=== PATIENT | male | born 1980 | race Caucasian/White ===

== ENCOUNTER 2016-05-08 08:38 | Emergency (ER) | payer OTHER ==
[~2016-05-08] VITALS: Ht 177.8 cm; Wt 109.0 kg
[2016-05-08 08:42] VITALS: BP 135/87; PULSE 61; RESP 18; O2SAT 97
--- NOTE | 2016-05-08 08:51 | ED.REPORT ---
HPI-Extremity Problem Lower Date of Service May 08, 2016 ED Provider: Dr. Ines Cross Patient is a 36-year-old male with a hx of HTN who reports to the ED with right lower extremity swelling and tenderness. Patient works at [employer] and his ski boot rubs on his right leg in the same place where his symptoms are occurring. Patient is not currently on any medication for HTN. Patient denies SOB, chest pain, nausea, Nursing Notes Stated Complaint: IRREGULAR HEART BEAT Chief Complaint: Extremity Trauma Nursing Notes Reviewed: Yes Allergies: Coded Allergies: No Known Allergies (Unverified , 05/08/16) Scheduled Sulfamethoxazole/Trimeth 800-160 mg (Bactrim DS) 1 Each Tablet 1 TABLET PO BID General Time Seen by MD: 08:51 Chief Complaint Leg injury right (right calf swelling and tenderness) Hx Obtained From: Patient Onset Occurred: 1 day ago Symptom Duration: Since onset Location: : Leg right Severity: Current: Mild Similar Sx Previous: No Past Medical History Past Medical History not currently on any medication for HTN Reports: Hypertension Past Surgical History denies Smoking History Unknown if Ever Smoker Ambulatory Status Independent Review of Systems Musculoskeletal: Reports: Extremity swelling (right calf erythema and tenderness) Skin: Reports Swelling (right calf) Complete sys rev & neg: except as marked. Respiratory: Denies: Shortness of breath Cardiovascular: Denies: Chest pain Physical Exam Initial Vital Signs Vital Signs (First) Date Time Temp Pulse Resp B/P Pulse Ox O2 Delivery O2 Flow Rate FiO2 05/08/16 08:42 36.6 61 18 135/87 97 Initial VS: Reviewed General/Constitutional: Well-developed, Well-nourished Head / Eyes: Atraumatic, Normocephalic, PERRL ENT: Mucous membranes moist, Conjunctiva normal, No scleral icterus Neck: Supple, Non-tender, Full range of motion Respiratory: Breath sounds normal, Clear to auscultation, No respiratory distress Cardiovascular: Regular rate & rhythm, Heart sounds normal, Intact distal pulses Abdomen / GI: Soft, Non-tender, No guarding, No rebound, No distention Neurologic: Alert, Oriented, Nonfocal Psychiatric: Mood/affect normal, Behavior normal, Normal thought content Right Leg / Calf: Positive: Swelling present... (Moderate) band of errythema and tenderness around right calf Right Ankle: Positive: Swelling present... (Mild) Interpretation & Diagnostics Lab Results Interpretation Result Diagram: 05/08/16 0905 05/08/16 0905 Test 05/08/16 09:05 White Blood Count 11.2th/mm3 (3.8-10.1) Red Blood Count 4.74mil/mm3 (4.40-5.80) Hemoglobin 13.6g/dL (13.8-17.2) Hematocrit 40.2% (41.0-50.0) Mean Corpuscular Volume 84.8fL (81-100) Mean Corpuscular Hemoglobin 28.7pg (27.0-35.0) Mean Corpuscular Hemoglobin Concent 33.8% (32.0-37.0) Red Cell Distribution Width 13.8% (12.3-15.4) Platelet Count 249bil/L (150-400) Neutrophils (%) (Auto) 74.7% (40-74) Lymphocytes (%) (Auto) 13.4% (14-46) Monocytes (%) (Auto) 11.1% (4-12) Eosinophils (%) (Auto) 0.2% (0-5) Basophils (%) (Auto) 0.4% (0-3) Sodium Level 138mEq/L (134-144) Potassium Level 4.1mEq/L (3.5-5.2) Chloride Level 103mEq/L (97-108) Carbon Dioxide Level 21mmol/L (18-29) Blood Urea Nitrogen 12mg/dL (6-20) Creatinine 0.83mg/dL (0.76-1.27) Estimat Glomerular Filtration Rate 110mL/min (>59) Glucose Level 104mg/dL (60-99) Calcium Level 9.0mg/dL (8.5-10.1) Total Bilirubin 0.9mg/dL (0.0-1.2) Aspartate Amino Transf (AST/SGOT) 16U/L (0-50) Alanine Aminotransferase (ALT/SGPT) 16U/L (0-44) Alkaline Phosphatase 63U/L (25-150) Total Protein 7.2g/dL (6.4-8.4) Albumin 4.2g/dL (3.4-5.0) Hold Shelton Top Tube Received (Received) ECG Interpretation Time: 09:45 Interpreted by: ED physician Normal ECG Interpretation: Normal sinus rhythm (86 with PVC's) Re-Eval/Medical Decision Counseled Regarding: Diagnosis, Lab results, Need for follow-up, When/why to return to ED Discharge & Departure Impression: Primary Impression: Cellulitis of right lower extremity Ruled Out: DVT (deep venous thrombosis) Disposition: Home Discharge Condition All VS Reviewed: Yes Condition: Stable Additional Instructions: see discharge notes for meds and d/c details Septra DS BID for 10 days Scribe Attestation Portion of this note were transcribed by Annie Ventura. I, Dr. Cross, personally performed the history, physical exam, and medical decision-making: I reviewed and confirmed the accuracy for the information in the transcribed note. Signed by: mary Phipps, 05/08/16 0945 Ines Cross MD May 08, 2016 08:51 ANNIE VENTURA May 08, 2016 08:57
[2016-05-08 09:17] LABS: BASOPHILS % (AUTO) 0.4 % (0-3); EOSINOPHILS % (AUTO) 0.2 % (0-5); MONOCYTES % (AUTO) 11.1 % (4-12); Mean Corpuscular Hemoglobin 28.7 pg (27.0-35.0); Mean Corpuscular Volume 84.8 fL (81-100); NEUTROPHILS % (AUTO) 74.7 % (40-74); Platelet Count 249 bil/L (150-400)
[2016-05-08] MEDS ORDERED: cefTRIAXone Inj 1,000 MG, Lidocaine PF 1% Inj 2.1 ML in Syringe 0 EACH IM ONE (09:45)
[2016-05-08] MEDS ORDERED: SULF1TAB7 PO (09:48)
--- NOTE | 2016-05-08 10:22 | DRSVH ---
PROCEDURE: US VEINOUS LEG DUPLEX UNILATERAL, RIGHT INDICATIONS: unilateral edema TECHNIQUE: Real-time imaging, as well as color and pulse Doppler interrogation, were performed of the lower extr emity deep veins from the inguinal ligament to the popliteal fossa. COMPARISON: None. FINDINGS: The deep veins are normally compressible, and free of intraluminal thrombus. Color and pu lse Doppler demonstrate normal phasic intraluminal flow. There is normal augmentation response to di stal compression maneuver. IMPRESSION: No deep venous thrombosis in the right lower extremity. Dictated by: Ghazala Benoit M.D. on 05/08/2016 at 10:20 Approved by: Ghazala eBnoit M.D. on 05/08/2016 at 10:20
== END 2016-05-08 10:29 | disposition home or self-care (01) ==
LOC: SED 08:38
DX: L03.115 Cellulitis of right lower limb (principal); I10 Essential (primary) hypertension
CPT/HCPCS: 36415; 80053; 85025; 93971; 96372; 99285; J0696